=== PATIENT | male | born 1965 | race Caucasian/White ===

== ENCOUNTER → 2024-11-21 10:06 | Outpatient (REF) | payer BC, SELFPAY ==
[2024-11-21 11:45] LABS: Blood Urea Nitrogen 16 mg/dl (9-20)
== END ==
LOC: HWLAB 10:06
PROVIDERS: ATTENDING PHYSICIAN Internal Medicine Critical Care Medicine; FAMILY PHYSICIAN Internal Medicine
DX: Z51.81 Encounter for therapeutic drug level monitoring (principal)
CPT/HCPCS: 36415; 82565; 84520

== ENCOUNTER → 2025-07-01 08:20 | Outpatient (REF) | payer BC, SELFPAY | LOC: HWRAD 08:20 | PROVIDERS: ATTENDING PHYSICIAN Otolaryngology; FAMILY PHYSICIAN Internal Medicine; REFERRING PHYSICIAN Internal Medicine Critical Care Medicine | DX: J32.8 Other chronic sinusitis (principal); D80.1 Nonfamilial hypogammaglobulinemia; D84.9 Immunodeficiency, unspecified; R06.09 Other forms of dyspnea | CPT/HCPCS: 70486; 71046 ==

== ENCOUNTER 2025-07-21 06:07 | Day surgery (SDC) | payer BC, SELFPAY ==
[2025-07-21] VITALS (8 sets, daily range): BP systolic 118–136; BP diastolic 81–90; BMI 24.4
[2025-07-21] MEDS: DILAUDID 0.25 MG IV ×2 (09:04→09:21)
[2025-07-21] MEDS: DILAUDID 0.5 MG IV (09:37)
== END 2025-07-21 10:29 | disposition home or self-care (01) ==
LOC: SDS 06:07
PROVIDERS: ATTENDING PHYSICIAN Otolaryngology
DX: J32.9 Chronic sinusitis, unspecified (principal); F12.90 Cannabis use, unspecified, uncomplicated; D84.9 Immunodeficiency, unspecified; J45.991 Cough variant asthma; J44.89 Other specified chronic obstructive pulmonary disease
CPT/HCPCS: 31276; 31257; 31267; 87070; 87205; 88311